=== PATIENT | male | born 1990 ===

== ENCOUNTER 2021-09-27 00:16 | Emergency (ER) | payer SELFPAY ==
--- OUTSIDE RECORDS SUMMARY | 2021-09-27 00:20 | XMS REPORT | Continuity of Care Document ---
:1990 Author Organization [facility] t Address [address] [place] [address] Care Team Providers Name Role Phone EDDOC, FOR EDM Attending Clinician Unavailable Felicitas Lacy Attending Clinician Unavailable CENTER, CARE Admitting Clinician Unavailable Felicitas Lacy Admitting Clinician Unavailable Problems This patient has no known problems. Allergies, Adverse Reactions, Alerts Allergy Allergy Status Severity Reaction(s) Onset Inactive Treating Comm ents Source Name Type Date Date Clinician No Known DA Active U 2020-10 [facility] Allergie 11-10 [facility] 00:00: Méndez 00 [facility] Medications This patient has no known medications. Procedures This patient has no known procedures. Encounters Start End Encounter Admission Attending Care Care Encounter Source Date/Time Date/Time Type Type Clinicians Facility Department ID 2021-09-10 [id number] 11:00:00 GENERIC 17 [facility] Results Test Description Test Time Test Comments Results Result Comments Source Coronavirus 2018 nCoV Bedside 2021-09-12 07:13:00 Test Item Value Reference Range Interpretation Comme nts Coronavirus 2019 nCoV Bedside Negative Negative Performed by certified cylinder press operator at (test code = [id number]) [facility] should be treat ed as presumptive and, ifinconsis tent with clinical signs and sympt oms or necessaryfor patient managem ent, should be tested with an alterna tivemolecular assay. Negative result s do not preclude [id number] tion and should not be used as the sole basis forpatient management deci sions. Negative results should beconsidered in the context of a nishi mello's recent exposures,histo ry, presence of clinical signs and symptoms consistentwith COVID-19. COMPREHENSIVE METABOLIC [id number] 07:37:00 Test Item Value Reference Range Interpretation Comments SODIUM (test code = NA) 144 mEq/L 134-147 N POTASSIUM (test code = 4.0 mEq/L 3.4-5.0 N K) CHLORIDE (test code = 108 mEq/L 100-108 N CL) CARBON DIOXIDE (test 28 mEq/l 21-33 N code = CO2) ANION GAP (test code = 12 0-20 N GAP) GLUCOSE (test code = 114 mg/dL 70-110 H GLU) BLOOD UREA NITROGEN 14 mg/dL 7-18 N (test code = BUN) GLOMERULAR FILTRATION 113.5 105-110 H Units of measure = RATE (test code = GFR) ml/mi n/1.73 m2 CREATININE (test code = 0.8 mg/dL 0.6-1.3 N CREAT) TOTAL PROTEIN (test 5.4 g/dL 6.4-8.2 L code = PROT) ALBUMIN (test code = 3.30 g/dL 3.4-5.0 L ALB) CALCIUM (test code = 8.1 mg/dL 8.0-10.5 N CA) BILIRUBIN TOTAL (test 0.40 mg/dL 0.0-1.0 N code = BILT) SGOT/AST (test code = 12 IUnit/L 15-37 L AST) SGPT/ALT (test code = 14 IUnit/L 30-65 L ALT) ALKALINE PHOSPHATASE 66 IUnit/L 20-125 N TOTAL (test code = ALKP) CBC W/AUTO [id number] 07:23:00 Test Item Value Reference Range Interpretation Comments WHITE BLOOD CELL (test code = 13.4 x10 3/uL 4.5-11.0 H WBC) RED BLOOD CELL (test code = 2.93 x10 6/uL 4.00-5.60 L RBC) HEMOGLOBIN (test code = HGB) 9.6 g/dL 12.5-16.9 L HEMATOCRIT (test code = HCT) 28.2 % 37.5-50.7 L MEAN CELL VOLUME (test code = 96.2 fL 81.0-99.0 N MCV) MEAN CELL HGB (test code = 32.8 pg 27.0-33.0 N MCH) MEAN CELL HGB CONCETRATION 34.0 g/dL 33.0-37.0 N (test code = MCHC) RED CELL DISTRIBUTION WIDTH CV 12.2 % 11.5-14.5 N (test code = RDW) RED CELL DISTRIBUTION WIDTH SD 43.5 fL 37.0-54.0 N (test code = RDW-SD) PLATELET COUNT (test code = 224 x10 3/uL 150-400 N PLT) MEAN PLATELET VOLUME (test 10.9 fL 7.0-9.0 H code = MPV) NEUTROPHIL % (test code = NT%) 81.8 % 56.0-77.0 H IMMATURE GRANULOCYTE % (test 0.4 % 0.0-2.0 N code = IG%) LYMPHOCYTE % (test code = LY%) 10.7 % 14.0-32.0 L MONOCYTE % (test code = MO%) 7.0 % 4.8-9.0 N EOSINOPHIL % (test code = EO%) 0.0 % 0.3-3.7 L BASOPHIL % (test code = BA%) 0.1 % 0.0-2.0 N NUCLEATED RBC % (test code = 0.0 % 0-0 N NRBC%) NEUTROPHIL # (test code = NT#) 10.95 x10 3/uL 2.0-7.6 H IMMATURE GRANULOCYTE # (test 0.06 x10 3/uL 0.00-0.03 H code = IG#) LYMPHOCYTE # (test code = LY#) 1.44 x10 3/uL 1.0-3.8 N MONOCYTE # (test code = MO#) 0.94 x10 3/uL 0.1-0.8 H EOSINOPHIL # (test code = EO#) 0.00 x10 3/uL 0.0-0.2 N BASOPHIL # (test code = BA#) 0.02 x10 3/uL 0.0-0.2 N NUCLEATED RBC # (test code = 0.00 x10 3/uL 0.0-0.1 N NRBC#) MANUAL DIFF REQUIRED (test NO code = MDIFF) CBC W/AUTO [id number] 14:24:00 Test Item Value Reference Range Interpretation Comments WHITE BLOOD CELL (test code = 19.2 x10 3/uL 4.5-11.0 H WBC) RED BLOOD CELL (test code = 4.21 x10 6/uL 4.00-5.60 N RBC) HEMOGLOBIN (test code = HGB) 14.0 g/dL 12.5-16.9 N HEMATOCRIT (test code = HCT) 39.8 % 37.5-50.7 N MEAN CELL VOLUME (test code = 94.5 fL 81.0-99.0 N MCV) MEAN CELL HGB (test code = 33.3 pg 27.0-33.0 H MCH) MEAN CELL HGB CONCETRATION 35.2 g/dL 33.0-37.0 N (test code = MCHC) RED CELL DISTRIBUTION WIDTH CV 12.2 % 11.5-14.5 N (test code = RDW) RED CELL DISTRIBUTION WIDTH SD 42.4 fL 37.0-54.0 N (test code = RDW-SD) PLATELET COUNT (test code = 276 x10 3/uL 150-400 N PLT) MEAN PLATELET VOLUME (test 10.9 fL 7.0-9.0 H code = MPV) NEUTROPHIL % (test code = NT%) 92.5 % 56.0-77.0 H IMMATURE GRANULOCYTE % (test 0.4 % 0.0-2.0 N code = IG%) LYMPHOCYTE % (test code = LY%) 4.2 % 14.0-32.0 L MONOCYTE % (test code = MO%) 2.7 % 4.8-9.0 L EOSINOPHIL % (test code = EO%) 0.0 % 0.3-3.7 L BASOPHIL % (test code = BA%) 0.2 % 0.0-2.0 N NUCLEATED RBC % (test code = 0.0 % 0-0 N NRBC%) NEUTROPHIL # (test code = NT#) 17.72 x10 3/uL 2.0-7.6 H IMMATURE GRANULOCYTE # (test 0.08 x10 3/uL 0.00-0.03 H code = IG#) LYMPHOCYTE # (test code = LY#) 0.81 x10 3/uL 1.0-3.8 L MONOCYTE # (test code = MO#) 0.51 x10 3/uL 0.1-0.8 N EOSINOPHIL # (test code = EO#) 0.00 x10 3/uL 0.0-0.2 N BASOPHIL # (test code = BA#) 0.03 x10 3/uL 0.0-0.2 N NUCLEATED RBC # (test code = 0.00 x10 3/uL 0.0-0.1 N NRBC#) MANUAL DIFF REQUIRED (test NO code = MDIFF) COVID 19 Asymptomatic IH [id number] 14:12:00 Test Item Value Reference Range Interpretation Comments COVID 19 Asymptomatic Negative Negative A nega tive result is IH AG (test code = presumpti ve and should COVNONPUIAG) be confirmedwit h an FDA authorized mole cular assay, if neces rafita forpatient nancy gement.A positive result does not rule out co-inf ections withother patho gens.This test detects calvin th viable (live) and non-viable,SARS -CoV, and SARS-CoV-2. Beltran t performance dep ends on theamount of vi ivy (antigen) in th e sample.This beltran t has not been FDA cleare d or approved; the t est hasbeen authori zed by FDA under an Em ergency Use Authorizati on(EUA) for use by labo ratories certified under the CLIA thatmeet the requirements to perform moderate, high or waivedcomplexit y tests. BASIC METABOLIC [id number] 09:15:00 Test Item Value Reference Range Interpretation Comments SODIUM (test code = NA/ABG) 141 MEQ/L 134-147 N POTASSIUM (test code = K/ABG) 3.4 MEQ/L 3.4-5.0 N CHLORIDE (test code = CL/ABG) 102 MEQ/L 100-108 N CREATININE ABG (test code = 0.8 mg/dL 0.8-1.3 N CREAABG) POC IONIZED CALCIUM (test code = 1.19 MMOL/L 1.12-1.32 N POCCA) POC GLUCOSE (test code = POCGLU) 166 MG/DL - XR HAND 3 + V [id number] 00:00:00 [facility] : 1990 Sex: M FAX: Bernadine Vega MD [place]: [place] [address]: REG Name: MICKY ARZOLA FSED : 1990 Age/S: 31/M [address] [facility] Unit #: [id number] Loc: [place] [address] Phys: Darrion Vega Acct: [id number] Dis Date: Status: REG ER PHONE #: Exam Date: 09/10/2021 0900 FAX #: Reason: Saw vs hand EXAMS: CPT CODE: [id number] XR HAND 3 + [place] [id number] PROCEDURE INFORMATION: Exam: XR Left Hand Exam date and time: 09/10/2021 8:46 AM Age: 31 years old Clinical indication: Injuryor trauma; Other: Work related; Crushing; Hand; Left; Additional info: Saw vs hand TECHNIQUE: Imaging protocol: XR Left hand. Views: 3 or more views. Frontal Oblique Lateral COMPARISON: No relevant prior studies available. FINDINGS: Large soft tissue laceration. Large overlying dressing limits evaluation for foreign body. There is subcuta neous gas. Questionable nondisplaced fracture of the 2nd proximal phalanx, however evaluation limited. Questionable foreign bodies along the 5th metacarpal neck versus small fracture fragments. The joint spaces are intact. Small foreign body along the distal radius measuring 3 mm along the volar forearm. If there is persistent clinical concern, follow up CT or MRI is recommended. IMPRESSION: 1. Large soft tissue laceration with subcutaneous gas. 2. Small densities adjacent to the 5th metacarpal neck could reflect foreign bodies or bony fragments. This could also reflect overlying dressing. 3. Lucency along the 2nd proximal phalanx most likely artifact. Cannot definitively exclude fracture. 4. Separately located small foreign body along the volar forearm. at 0913 Reported and signed by: Joe Reed M.D. CC: Bernadine Vega MD Technologist: RT Tiffany(R)(CT) Trnmird Date/Time/By: 09/10/2021 (912) : By: [email or web address] Orig Print D/T: S: 09/10/2021 (912) PAGE 1 SignedReport
--- NOTE | 2021-09-27 00:54 | EDPHYS ---
Physician Documentation [facility] Name: Crow Eason Age: 31 yrs Sex: Male : 1990 Arrival Date: 09/27/2021 Time: 00:22 Bed 12 Private MD: ED Physician Tanner Davis HPI: 09/27 01:46 This 31 yrs old Male presents to ER via Ambulatory with complaints of Post Surgical kb Pain. 01:46 The patient or guardian reports pain, swelling, tenderness. The complaints affect the kb left hand diffusely. Context: resulted from postop. Onset: The symptoms/episode began/occurred last week. Modifying factors: The symptoms are alleviated by nothing, the symptoms are aggravated by movement. Associated signs and symptoms: The patient has no apparent associated signs or symptoms. Severity of symptoms: At their worst the symptoms were moderate, in the emergency department the symptoms are unchanged. The patient has not experienced similar symptoms in the past. The patient has been recently seen by a physician:. Pt reports he had hand surgery on 09/10/21 by a surgeon in [place]. Reports pain to left hand. . Historical: - Allergies: 00:39 No Known Allergies; lp1 - Home Meds: 00:39 None [Active]; lp1 - PMHx: 00:39 None; lp1 - PSHx: 00:39 None; lp1 - Immunization history:: Adult Immunizations up to date. - Social history:: Smoking status: Patient denies any tobacco usage or history of. ROS: 01:44 Constitutional: Negative for fever, chills, and weight loss. kb 01:44 MS/extremity: Positive for pain, swelling, tenderness, of the left hand. 01:44 All other systems are negative. Exam: 01:45 Constitutional: This is a well developed, well nourished patient who is awake, alert, kb and in no acute distress. Head/Face: Normocephalic, atraumatic. ENT: Moist Mucous membranes Respiratory: Respirations even and unlabored. No increased work of breathing, no retractions or nasal flaring. Neuro: Awake and alert, GCS 15, oriented to person, place, time, and situation. Moves all extremities. Normal gait. Psych: Awake, alert, with orientation to person, place and time. Behavior, mood, and affect are within normal limits. 01:45 Musculoskeletal/extremity: Extremities: grossly normal except: noted in the left hand: pain, swelling, tenderness, ROM expected for postop, ROM: limited active range of motion, in the left hand, Circulation is intact in all extremities. Sensation intact. 01:45 Skin: surgical incision with sutures to palm of left hand. Small area of drainage noted. Vital Signs: 00:38 BP 138 / 81; Pulse 92; Resp 16; Temp 98.5(TE); Pulse Ox 100% on R/A; Weight 63.5 kg lp1 (R); Height 5 ft. 4 in. (162.56 cm); Pain 9/10; 00:38 Body Mass Index 24.03 (63.50 kg, 162.56 cm) lp1 MDM: 00:44 Patient medically screened. kb 01:25 Data reviewed: vital signs, nurses notes. Data interpreted: Pulse oximetry: on room air kb is 100 %. Interpretation: normal. Counseling: I had a detailed discussion with the patient and/or guardian regarding: the historical points, exam findings, and any diagnostic results supporting the discharge/admit diagnosis, the need for outpatient follow up, a hand specialist, to return to the emergency department if symptoms worsen or persist or if there are any questions or concerns that arise at home. ED course: ROM of fingers expected for post op. Cap refill less than 2 secs, full sensation. Serosanguinous drainage to small area of surgical incision. nonadherent dressing, kerlex, orthoglass and gordy reapplied. Antibiotics prescribed. Pt will call hand surgeon tomorrow for follow up. Administered Medications: 01:00 Drug: Bactrim (trimethoprim-sulfamethoxazole) (160 mg-800 mg (DS) 1 tablet Route: PO; lp1 01:00 Follow up: Response: Medication administered at discharge. lp1 Disposition: 02:05 Co-signature as Attending Physician, Tanner Davis MD I agree with the assessment and rn plan of care. Attestation: The patient's history, exam findings, diagnostics, and a summary of any interventions or procedures was reviewed in detail with Lorin RILEY. Disposition Summary: 09/27/21 00:53 Discharge Ordered Location: Home kb Condition: Stable kb Diagnosis - Pain in left hand - post surgical kb - Local infection of the skin and subcutaneous tissue, unspecified kb Followup: kb - With: Emergency Department - When: As needed - Reason: Worsening of condition Followup: kb - With: Private Physician - When: 2 - 3 days - Reason: Recheck today's complaints, Continuance of care, Re-evaluation by your physician Discharge Instructions: - Discharge Summary Sheet kb - Wound Infection, [id number] kb Forms: - Medication Reconciliation Form kb - Thank You Letter kb - Antibiotic Education kb - Prescription Opioid Use kb Prescriptions: - Bactrim DS 800-160 mg Oral Tablet - take 1 tablet by ORAL route every 12 hours for 10 days; 20 tablet; Refills: 0, kb Product Selection Permitted Signatures: Lorin Galeas, OSWALDO-C OSWALDO-Tanner Hennessy MD MD rn Mandy Nguyen RN RN lp1
--- NOTE | 2021-09-27 00:54 | ER ---
Nurse's Notes [facility] Name: Crow Eason Age: 31 yrs Sex: Male : 1990 Arrival Date: 09/27/2021 Time: 00:22 Bed 12 Private MD: Diagnosis: Pain in left hand-post surgical ;Local infection of the skin and subcutaneous tissue, unspecified Presentation: 09/27 00:38 Chief complaint: Patient states: Reports increased pain to left hand that began 1 day lp1 ago, with numbness and discoloration to left pinky finger; splint in place to left arm; Surgery performed 09/10/21 at [facility]. Coronavirus screen: At this time, the client does not indicate any symptoms associated with coronavirus-19. Ebola Screen: No symptoms or risks identified at this time. Initial Sepsis Screen: Does the patient meet any 2 criteria? No. Patient's initial sepsis screen is negative. Does the patient have a suspected source of infection? No. Patient's initial sepsis screen is negative. Risk Assessment: Do you want to hurt yourself or someone else? Patient reports no desire to harm self or others. Onset of symptoms was September 27, 2021. 00:38 Method Of Arrival: Ambulatory lp1 00:38 Acuity: NIMA 4 lp1 Historical: - Allergies: 00:39 No Known Allergies; lp1 - Home Meds: 00:39 None [Active]; lp1 - PMHx: 00:39 None; lp1 - PSHx: 00:39 None; lp1 - Immunization history:: Adult Immunizations up to date. - Social history:: Smoking status: Patient denies any tobacco usage or history of. Screenin:40 Abuse screen: Denies threats or abuse. Denies injuries from another. Nutritional lp1 screening: No deficits noted. Tuberculosis screening: No symptoms or risk factors identified. Fall Risk None identified. Assessment: 00:55 General: Appears in no apparent distress. Behavior is appropriate for age. Pain: lp1 Complains of pain in left hand Pain currently is 7 out of 10 on a pain scale. Quality of pain is described as sharp. Neuro: Level of Consciousness is awake, alert, obeys commands, Oriented to person, place, time, situation. Cardiovascular: Patient's skin is warm and dry. Respiratory: Respiratory effort is even, unlabored. GI: No signs and/or symptoms were reported involving the gastrointestinal system. : No signs and/or symptoms were reported regarding the genitourinary system. EENT: No signs and/or symptoms were reported regarding the EENT system. Derm: Wound noted palm of left hand Wound is some drainage noted from laceration site. Musculoskeletal: Circulation, motion, and sensation intact. Vital Signs: 00:38 BP 138 / 81; Pulse 92; Resp 16; Temp 98.5(TE); Pulse Ox 100% on R/A; Weight 63.5 kg lp1 (R); Height 5 ft. 4 in. (162.56 cm); Pain 9/10; 00:38 Body Mass Index 24.03 (63.50 kg, 162.56 cm) lp1 ED Course: 00:22 Patient arrived in ED. wm 00:36 Lorin Galeas FNP-C [facility]. kb 00:36 Tanner Davis MD is Attending Physician. kb 00:39 Triage completed. lp1 00:39 Arm band placed on. lp1 00:40 Patient has correct armband on for positive identification. lp1 00:51 Mandy Nguyen, TRINIDAD is Primary Nurse. lp1 00:56 No provider procedures requiring assistance completed. Patient did not have IV access lp1 during this emergency room visit. Administered Medications: 01:00 Drug: Bactrim (trimethoprim-sulfamethoxazole) (160 mg-800 mg (DS) 1 tablet Route: PO; lp1 01:00 Follow up: Response: Medication administered at discharge. lp1 Outcome: 00:53 Discharge ordered by . kb 01:01 Discharged to home ambulatory, with family. lp1 01:01 Condition: good 01:01 Discharge instructions given to patient, family, Instructed on discharge instructions, follow up and referral plans. medication usage, Demonstrated understanding of instructions, follow-up care, medications, Prescriptions given X 1. 01:01 Patient left the ED. lp1 Signatures: Lorin Galeas FNP-C FNP-Ckb Pena, Laura, RN RN lp1 Alanna Gentile
[2021-09-27] MEDS ORDERED: SMZ./TMP. 800/160 MG TABLET ONE (00:57)
[2021-09-27 01:06] VITALS: BP 138/81; TEMP 98.5; O2SAT 100
== END 2021-09-27 01:01 | disposition home or self-care (01) ==
LOC: ER 00:16
DX: L08.89 Other specified local infections of the skin and subcutaneous tissue (principal); M79.642 Pain in left hand
CPT/HCPCS: 99283